=== PATIENT | male | born 1995 | race Caucasian/White ===

== ENCOUNTER 2018-03-27 01:01 | Emergency (ER) | payer OTHER ==
[~2018-03-27] VITALS: Ht 180.3 cm; Wt 117.9 kg
--- NOTE | 2018-03-27 01:02 | NUR ---
PT BIBA TO ER BED 04
[2018-03-27 01:05] VITALS: BP 140/85
--- NOTE | 2018-03-27 01:05 | NUR ---
PATIENT IS A 22 Y/O MALE WH OPRESENTS TO THE ED C/O SOB. PT STATES THAT HE WAS DRIVING HOME WHEN HE FELT SOB AND PALPITATIONS. PT DENIES PAIN AT THIS TIME. PT REPORTS SOB, 99% O2 ON RA, LUNG SOUNDS CLEAR BL. PT DENIES N/V/D. PT AAOX4, RR EVEN/UNLABORED. PT REPOSITIONED FOR COMFORT, BED IN LOWEST POSITION. ER MD DR. FAIR NOTIFIED. WILL CONTINUE TO MONITOR.
[2018-03-27] MEDS ORDERED: NACL 0.9% 1,000 ML IV ONE ×2 (01:30→02:35)
[2018-03-27 01:44] LABS: BASOPHILS # (AUTO) 0.1 K/uL (0.00-0.22); BASOPHILS % (AUTO) 0.7 % (0.0-2.0); EOSINOPHILS # (AUTO) 0.1 K/uL (0-0.4); EOSINOPHILS % (AUTO) 0.9 % (0.0-4.0); HEMATOCRIT 47.6 % (36-52); HEMOGLOBIN 15.8 g/dL (12.0-18.0); LYMPHOCYTES # (AUTO) 1.1 K/uL (2.0-11.5); LYMPHOCYTES % (AUTO) 7.4 % (20.5-51.1); MEAN CORPUSCULAR HEMOGLOBIN 29 pg (27-31); MEAN CORPUSCULAR HGB CONC 33 g/dL (33-37); MEAN CORPUSCULAR VOLUME 87.5 fL (80-94); MONOCYTES # (AUTO) 0.6 K/uL (0.8-1.0); NEUTROPHILS # (AUTO) 13.1 K/uL (1.8-7.7); PLATELET COUNT (AUTO) 474 K/uL (140-450); RED BLOOD CELL COUNT(AUTO) 5.44 MIL/uL (4.20-6.10); RED CELL DISTRIBUTION WIDTH 13.4 % (11.6-13.7); WHITE BLOOD COUNT (AUTO) 15.1 K/uL (4.8-10.8)
[2018-03-27 01:53] LABS: ANION GAP 15.6 (8-16); CARBON DIOXIDE 27.9 mmol/L (21-32); CREATININE 1.1 mg/dL (0.7-1.3); POTASSIUM 3.5 mmol/L (3.5-5.1)
--- NOTE | 2018-03-27 01:57 | NUR ---
pt resting in bed, awake, tachy on monitor, no other s/s of distress noted. Family at bedside.
[2018-03-27 02:00] LABS: TOTAL BILIRUBIN 0.4 mg/dL (0.0-1.0)
[2018-03-27 02:07] LABS: CREATINE KINASE MB 1.4 ng/mL (0-3.6)
[2018-03-27 02:52] LABS: BARBITURATE, URINE NEG. ng/ml (NEG <=200); BENZODIAZEPINE, URINE NEG. ng/mL (NEG <=200); CANNABINOID, URINE NEG. ng/mL (NEG <=50); COCAINE, URINE NEG. ng/mL (NEG <=300); OPIATE, URINE NEG. ng/mL (NEG <=2000); PHENCYCLIDINE SCREEN,URINE NEG. ng/mL (NEG <=25)
[2018-03-27] MEDS ORDERED: LORazepam 2 MG/ML VIAL IVP ONE (03:15)
--- NOTE | 2018-03-27 03:30 | NUR ---
PATIENT RESTING AT THIS TIME. NO SIGNS OF DISTRESS.
[2018-03-27 04:11] VITALS: BP 129/83
--- NOTE | 2018-03-27 04:11 | NUR ---
Patient discharged with v/s stable. Written and verbal after care instructions given and explained. Patient verbalized understanding. Ambulatory with steady gait. All questions addressed prior to discharge. Advised to follow up with PMD.
== END 2018-03-27 04:11 | disposition home or self-care (01) ==
LOC: MED 01:01
DX: R00.2 Palpitations (principal); R94.31 Abnormal electrocardiogram [ECG] [EKG]
CPT/HCPCS: 36415; 71045; 80053; 80305; 82550; 82553; 84484; 85025; 85379; 93005; 96361; 96374; 99285; J2060; Q0092